=== PATIENT | male | born 1970 | race Hispanic/Latino ===

== ENCOUNTER 2019-03-19 16:36 | Emergency (ER) | payer BC, OTHER ==
[~2019-03-19] VITALS: Ht 180.3 cm; Wt 93.0 kg
[~2019-03-19 16:36] MED LIST: GLUCOTROL5 MG; METFORMIN HCL850 MG; TRAMADOL HCL100 MG; unknown meds
--- OUTSIDE RECORDS SUMMARY | 2019-03-19 16:39 | XMS REPORT | Clinical Summary ---
Author Author [facility] Address Unknown Phone Unavailable Care Team Providers Care Help Desk Specialist Name Role Phone Asked, No Pcp PCP Unavailable Allergies No Known Allergies Medications End Date Status Medication Sig Dispensed Refills Start Date Active multivitamin capsule Take 1 0 capsule by mouth daily. Active cholecalciferol, vitamin Take 1,000 0 D3, (VITAMIN D3) 1,000 Units by unit capsule mouth daily. Active metFORMIN (GLUCOPHAGE) Take 1,000 mg 0 1,000 mg tablet by mouth 2 (two) times a day with meals. Active simvastatin (ZOCOR) 20 MG Take 20 mg by 0 tablet mouth nightly. Active syringe with needle Inject twice 60 Syringe 3 (SYRINGE 3CC/21GX1") 3 mL a week 7 21 gauge x 1" syringe Active lancets (onetouch Test 3-4 100 each 6 ultrasoft) misc times a day 7 Active blood sugar diagnostic Test 3 times 100 strip 3 strips (FREESTYLE LITE a day 7 STRIPS) strip test strips Active VITAMIN D2 50,000 unit TAKE 1 12 capsule 1 capsule CAPSULE BY 8 MOUTH ONCE A WEEK Active ALPRAZolam (XANAX) 0.25 TAKE 1 TABLET 0 MG tablet BY MOUTH 8 EVERY DAY NEEDED FOR ANXIETY 07/17/2019 Active testosterone cypionate INJECT 1ML BY 10 mL 2 (DEPOTESTOTERONE INTRAMUSCULAR 8 CYPIONATE) 200 mg/mL ROUTE TWICE injection MONTHLY, EVERY 2 WEEKS 03/21/2018 Discontinued testosterone cypionate Inject 200 mg 10 mL 3 (DEPOTESTOTERONE im twice 7 CYPIONATE) 200 mg/mL month (every injection two weeks) Please provide multi-vial 07/07/2018 nystatin-triamcinolone Apply 30 g 0 (MYCOLOG) 100,000-0.1 topically 2 7 unit/gram-% ointment (two) times a day. Active Problems Problem Noted Date Status post gastric bypass for obesity 09/10/2016 Last Assessment & Plan: Patient is experiencing symptoms of shakiness, dizziness, sweating which could be related to dumping syndrome or hypoglycemia. Patient was counseled to avoid sugary foods and to measure his glucose level the next time one of these episodes occurs. He may require titration of his metformin. Type 2 diabetes mellitus with complication 09/02/2016 Hypogonadism in male 09/02/2016 Vitamin D deficiency 09/02/2016 Morbid obesity 08/30/2016 Last Assessment & Plan: Obesity is improving with treatment, he has lost 48% of excess weight over the last 7 months since surgery. I have recommended the patient avoid sugary, high-calorie, low nutrient foods to prevent excess calorie intake. I have also recommended the patient increase the frequency and intensity of his exercise including cardiovascular and strength training. We will see the patient back in 6 months with labs. His recommended weight goal is 200 lbs for his next visit. Encounters Care Team Description Date Type Specialty Jolly Fierro NP 03/21/2018 Refill Endocrinology after 03/18/2018 Immunizations Name Dates Previously Given Next Due INFLUENZA QUAD PF 07/07/2017 Family History Medical History Relation Name Comments No Known Problems Daughter Appendicitis Father Diabetes type II Father No Known Problems Maternal Grandfather Leukemia Maternal Grandmother Diabetes type II Mother Hypertension Mother Diabetes Paternal Grandfather No Known Problems Paternal Grandmother Stomach cancer Sister No Known Problems Son Relation Name Status Comments Daughter Alive Father Maternal Grandfather Maternal Grandmother Mother Alive Paternal Grandfather Paternal Grandmother Sister Alive Sister Son Alive Social History Date Tobacco Use Types Packs/Day Years Used Light Tobacco Smoker Cigarettes 1 Alcohol Use Drinks/Week oz/Week Comments No Sex Assigned at Date Recorded Not on file Industry Job Start Date Occupation Not on file Not on file Not on file Travel End Travel History Travel Start No recent travel history available. Last Filed Vital Signs Not on file Plan of Treatment Health Maintenance Due Date Last Done Comments DIABETIC RETINAL EYE EXAM 1968 DIABETIC FOOT EXAM 1978 URINE MICROALBUMIN 1978 COLONOSCOPY SCREENING 2018 SHINGLES VACCINES (#1) 2018 INFLUENZA VACCINE 04/12/2019 07/07/2017 Results Not on fileafter 03/18/2018 Insurance Type Payer Benefit Subscriber ID Effective Phone Address Plan / Dates Group PPO BCBS BCBS xxxxxxxxxxxx [id number] CHOICE resent PPO/SARY MURCIA PPO Advance Directives Patient has advance care planning documents on file. For more information, [place] contact: Guanakito Sampson [address] [place] [address]
--- OUTSIDE RECORDS SUMMARY | 2019-03-19 16:39 | XMS REPORT ---
Author Author [facility] Address Unknown Phone Unavailable Care Team Providers Care Retaining Room Cutter Name Role Phone Unavailable Unavailable Problems This patient has no known problems. Allergies, Adverse Reactions, Alerts This patient has no known allergies or adverse reactions. Medications This patient has no known medications. Encounters Start Date/Time End Date/Time Encounter Type Admission Type Attending [facility] Care Facility Care Department Encounter ID 2019-02-27 18:56:00 2019-02-27 18:56:00 Emergency E [id number]
[2019-03-19 17:45] LABS: BASOPHILS # (AUTO) 0.1 (0.0-0.1); BASOPHILS % 0.8 % (0.0-1.0); EOSINOPHILS # (AUTO) 0.1 (0.0-0.4); EOSINOPHILS % 1.1 % (0.0-6.0); HEMATOCRIT 43.9 % (38.2-49.6); HEMOGLOBIN 14.5 g/dL (14.0-18.0); LYMPHOCYTES # (AUTO) 1.5 (1.0-3.2); LYMPHOCYTES % 22.4 % (18.0-39.1); MEAN CORPUSCULAR HEMOGLOBIN 28.3 pg (28-32); MEAN CORPUSCULAR VOLUME 85.7 fL (81-99); MONOCYTES # (AUTO) 0.6 (0.2-0.8); MONOCYTES % 9.2 % (4.4-11.3); NEUTROPHILS # (AUTO) 4.4 (2.1-6.9); NEUTROPHILS % 66.2 % (38.7-80.0); PLATELET COUNT 157 x10e3/uL (140-360); RED BLOOD COUNT 5.12 x10e6/uL (4.3-5.7); RED CELL DISTRIBUTION WIDTH 13.2 % (11.7-14.4)
[2019-03-19 17:56] LABS: BILIRUBIN,URINE MODERATE (NEGATIVE); CLARITY,URINE SL CLOUDY (CLEAR); COLOR,URINE YELLOW (YELLOW); KETONES,URINE TRACE (NEGATIVE); LEUKOCYTE ESTERASE ,URINE NEGATIVE (NEGATIVE); NITRITE,URINE NEGATIVE (NEGATIVE); PROTEIN,URINE DIPSTICK TRACE (NEGATIVE); URINE UROBILINOGEN 1 mg/dL (0.2 - 1)
[2019-03-19 18:04] LABS: BACTERIA,URINE MODERATE /HPF; MUCUS,URINE MODERATE (RARE)
[2019-03-19 18:05] LABS: AMYLASE 39 U/L (25-125); LIPASE 12 U/L (8-78)
[2019-03-19 18:07] LABS: ALANINE AMINOTRANSFERASE 36 IU/L (0-55); ALBUMIN 4.1 g/dL (3.5-5.0); ALBUMIN/GLOBULIN RATIO 1.6 (0.8-2.0); ALKALINE PHOSPHATASE 105 IU/L (40-150); ANION GAP 12.3 mmol/L (8-16); BLOOD UREA NITROGEN 14 mg/dL (7-26); BUN/CREATININE RATIO 14 (6-25); CALCIUM 8.8 mg/dL (8.4-10.2); CARBON DIOXIDE 26 mmol/L (22-29); CHLORIDE 108 mmol/L (98-107); CREATININE, SERUM 1.02 mg/dL (0.72-1.25); EST GLOMERULAR FILTRATION RATE > 60 ML/MIN (60-); GLUCOSE 104 mg/dL (74-118); POTASSIUM 4.3 mmol/L (3.5-5.1); SODIUM 142 mmol/L (136-145)
[2019-03-19] MEDS ORDERED: SODIUM CHLORIDE 0.9% 1000ML 1,000 ML IV STA (18:45)
[2019-03-19] MEDS ORDERED: MAGNESIUM/ALUMINUM/SIMETHICONE 30 ML UDC PO ONE (18:45)
[2019-03-19] MEDS ORDERED: LIDOCAINE VISC 2% SOLN 15 ML UDC PO ONE (18:45)
[2019-03-19] MEDS ORDERED: ONDANSETRON HCL INJ 2MG/ML 2ML 2 MG/ML VIAL IV STA (18:45)
--- NOTE | 2019-03-19 19:52 | Diagnostic Imaging Report ---
EXAM: CT Abdomen and Pelvis WITH contrast INDICATION: ^n/v/d abd pain COMPARISON: None. TECHNIQUE: Abdomen and pelvis were scanned utilizing a multidetector helical scanner from the lung base to the pubic symphysis after administration of IV contrast. Coronal and sagittal reformations were obtained. Routine protocol was performed. Scan was performed when during portal venous phase. IV CONTRAST: 100 mL of Isovue 370 ORAL CONTRAST: Water COMPLICATIONS: None RADIATION DOSE: Total DLP: 731.91 mGy*cm Estimated effective dose: (DLP x 0.015 x size factor) mSv CTDIvol has been reviewed. It is below the limits set by the Radiation Protocol Committee (RPC). Dose modulation, iterative reconstruction, and/or weight based adjustment of the mA/kV was utilized to reduce the radiation dose to as low as reasonably achievable. FINDINGS: LINES and TUBES: None. LOWER THORAX: There is bibasilar atelectasis. Calcified granuloma in the right lower lobe. HEPATOBILIARY: No focal hepatic lesions. No biliary ductal dilation. GALLBLADDER: No radio-opaque stones or sludge. No wall thickening. SPLEEN: No splenomegaly. PANCREAS: No focal masses or ductal dilatation. ADRENALS: No adrenal nodules KIDNEYS/URETERS: Kidneys enhance symmetrically. No hydronephrosis. No cystic or solid mass lesions. No stones. GI TRACT: Postoperative changes of antecolic Shar-en-Y gastric bypass. No abnormal distention, wall thickening, or evidence of bowel obstruction. Appendix is normal. PELVIC ORGANS/BLADDER: Unremarkable. LYMPH NODES: Multiple prominent mesenteric lymph nodes measuring to 0.6 cm in short axis. (Image 59). Left abdominal vessels measure up to 1.1 cm (image 42). VESSELS: Unremarkable. PERITONEUM / RETROPERITONEUM: No free air or fluid. 1.2 cm focal mesenteric fat necrosis with peripheral calcification (series 2, image 49). BONES: Unremarkable. SOFT TISSUES: Unremarkable. IMPRESSION: 1. Multiple prominent mesenteric lymph nodes. This is a nonspecific finding. This may be related to enteritis, mesenteric adenitis, or developing lymphoma. Recommend close follow-up. 2. Fluid-filled small bowel loops, which can be within normal limits or can be seen in enteritis. 3. Unremarkable colon. Signed by: Dr. David King M.D. on 03/19/2019 7:49 PM
[2019-03-19] MEDS ORDERED: BELLADONNA ALK/PHENOBARBITAL 5 ML UDC PO SCH (21:00)
[2019-03-19] MEDS ORDERED: SODIUM CHLORIDE 0.9% 50ML 50 ML ONE (22:37)
[2019-03-19] MEDS ORDERED: IOPAMIDOL 370 MG/ML 200 ML INFUS..BTL INJ ONE (22:38)
== END 2019-03-19 20:55 | disposition home or self-care (01) ==
LOC: ER 16:36
DX: R10.13 Epigastric pain (principal); R11.2 Nausea with vomiting, unspecified; R19.7 Diarrhea, unspecified; I10 Essential (primary) hypertension; E11.9 Type 2 diabetes mellitus without complications; E78.5 Hyperlipidemia, unspecified; F41.9 Anxiety disorder, unspecified; F32.9 Major depressive disorder, single episode, unspecified; Z98.84 Bariatric surgery status
CPT/HCPCS: 36415; 74177; 80053; 81001; 82150; 83690; 85025; 99284; J2405; J7030; Q9967